=== PATIENT | male | born 1990 | race Caucasian/White ===

== ENCOUNTER → 2021-02-02 | Emergency (ER) | payer OTHER ==
[~2021-02-02] VITALS: Ht 182.9 cm; Wt 78.2 kg
[2021-02-02 13:34] VITALS: BP 124/69
== END | disposition left against medical advice (07) ==
LOC: M ED 13:33
DX: Z53.20 Procedure and treatment not carried out because of patient's decision for unspecified reasons (principal); F17.200 Nicotine dependence, unspecified, uncomplicated